=== PATIENT | female | born 1950 | race Caucasian/White ===

== ENCOUNTER 2018-11-16 19:39 | Inpatient (IN) | payer MEDICARE, MEDICAID ==
[~2018-11-16] VITALS: Ht 165.1 cm; Wt 76.2 kg
[2018-11-16 21:00] LABS: BASOPHILS # (AUTO) 0.07 x10^3/uL (0-0.1); BASOPHILS % (AUTO) 1 % (0-1); EOSINOPHILS # (AUTO) 0.12 x10^3/uL (0-0.4); EOSINOPHILS % (AUTO) 2 % (1-7); LYMPHOCYTES # (AUTO) 2.29 x10^3/uL (1-3.4); LYMPHOCYTES % (AUTO) 29 % (22-44); MD NO; MEAN CORPUSCULAR HEMOGLOBIN 24.6 pg (27.0-34.8); MEAN CORPUSCULAR HGB CONC 31.3 g/dL (32.4-35.8); MEAN CORPUSCULAR VOLUME 78.6 fL (80-100); MEAN PLATELET VOLUME 7.1 fL (7.4-10.4); MONOCYTES # (AUTO) 0.75 x10^3/uL (0.2-0.8); MONOCYTES % (AUTO) 10 % (2-9); NEUTROPHILS # (AUTO) 4.62 x10^3/uL (1.8-6.8); NEUTROPHILS % (AUTO) 59 % (42-75); PLATELET COUNT 317 x10^3/uL (130-400); RED BLOOD COUNT 4.65 x10^6/uL (3.82-5.3); RED CELL DISTRIBUTION WIDTH 19.6 % (9.6-15.2)
[2018-11-16 21:11] LABS: ALANINE AMINOTRANSFERASE 19 U/L (12-78); ALBUMIN 3.4 g/dL (3.4-5.0); ANION GAP 8 mmol/L (5-15); CALCIUM 8.2 mg/dL (8.5-10.1); CHLORIDE 101 mmol/L (98-107)
[2018-11-16 21:16] LABS: ALKALINE PHOSPHATASE 149 U/L (45-117); BILIRUBIN,TOTAL 0.2 mg/dL (0.2-1.0); CREATININE 0.84 mg/dL (0.55-1.02); TOTAL PROTEIN 7.1 g/dL (6.4-8.2); TROPONIN I < 0.015 ng/mL (0.000-0.045)
--- NOTE | 2018-11-16 21:29 | NUR ---
ASSIST RN: PT AMBULATED TO BR WITHOUT DIFFICULTY.
--- NOTE | 2018-11-16 22:00 | NUR ---
REPORT RC'VD FROM ERIN MOELLER. RV'WD POC WITH PT, SHE VERBALIZES UNDERSTANDING.
--- NOTE | 2018-11-16 22:15 | NUR ---
PT TO CT VIA [facility].
[2018-11-16] MEDS ORDERED: OMNIPAQUE 350 MG/ML, 100ML BOTTLE ONE (22:30)
[2018-11-16] MEDS ORDERED: DULO20CA45 PO (22:39)
[2018-11-16] MEDS ORDERED: OMEP-110 PO (22:39)
[2018-11-16] MEDS ORDERED: OLAN20TA7 PO (22:39)
[2018-11-16] MEDS ORDERED: TIOT18CA INH (22:39)
[2018-11-16] MEDS ORDERED: LAMO100T PO (22:39)
[2018-11-16] MEDS ORDERED: LISI-167 PO (22:44)
[2018-11-16] MEDS ORDERED: METOPROLOL PO (22:44)
[2018-11-16] MEDS ORDERED: TRIA10.8 NAS (22:44)
[2018-11-16] MEDS ORDERED: AMLO10TA8 PO (22:44)
[2018-11-16] MEDS ORDERED: FLUT1BLS INH (22:44)
[2018-11-16] MEDS ORDERED: GABA100C PO (22:44)
--- NOTE | 2018-11-16 22:56 | NUR ---
PT HAS BEEN RESTING QUIETLY IN [facility], AWAKENS EASILY. AMBULATED TO BR WITH STAND BY ASSIST.
[2018-11-16 23:46] VITALS: BP 132/75
[2018-11-17] VITALS (8 sets, daily range): BP systolic 130–170; BP diastolic 70–92
[2018-11-17] MEDS ORDERED: VANCOMYCIN PER PHARMACY MC PRN (01:00)
[2018-11-17] MEDS ORDERED: VANCOMYCIN 1,400 MG in SODIUM CHLORIDE 0.9% 250 ML IV SCH (01:00)
[2018-11-17] MEDS ORDERED: ONDANSETRON ODT 4 MG PO PRN (01:00)
[2018-11-17] MEDS ORDERED: hydrALAzine 20 MG/ML, 1ML IVPush PRN (01:00)
[2018-11-17] MEDS ORDERED: PHARMACOKINETIC CONSULTATION MC ONE (01:00)
[2018-11-17] MEDS ORDERED: PHARMACOKINETIC MONITORING MC PRN (01:00)
[2018-11-17] MEDS: ENOXAPARIN 40 MG/0.4 ML SQ SCH (01:19)
[2018-11-17] MEDS ORDERED: ALBUTEROL/IPRATROPIUM 2.5MG/0.5MG, 3 ML ONE (01:39)
[2018-11-17] MEDS ORDERED: ALBUTEROL/IPRATROPIUM 2.5MG/0.5MG, 3 ML NPPB PRN (02:00)
[2018-11-17] MEDS: ALBUTEROL/IPRATROPIUM 2.5MG/0.5MG, 3 ML NPPB SCH ×3 (07:00→20:09)
[2018-11-17] MEDS: ACETAMINOPHEN 325 MG TABLET PO PRN ×2 (09:54→15:32)
[2018-11-17] MEDS ORDERED: METO-99 PO (10:28)
[2018-11-17] MEDS ORDERED: ALBU18HF INH (10:28)
[2018-11-17] MEDS ORDERED: NYST1POW31 TP (10:28)
[2018-11-17] MEDS ORDERED: HYDR50CA2 PO (10:28)
[2018-11-17] MEDS: DULOXETINE 20 MG CAPSULE.DR PO SCH ×2 (10:59→20:01)
[2018-11-17] MEDS: GUAIFENESIN 200 MG TABLET PO SCH ×3 (10:59→20:00)
[2018-11-17] MEDS: LISINOPRIL 40 MG TABLET PO SCH (10:59)
[2018-11-17] MEDS: METOPROLOL TARTRATE 100 MG TABLET PO SCH ×2 (11:00→20:00)
[2018-11-17] MEDS: CEFTRIAXONE PMX 1GM/50ML 50 ML IV SCH ×2 (11:01→11:22)
[2018-11-17 12:46] LABS: HCT (SEDRATE) 36.6 % (34.6-47.8)
[2018-11-17 12:56] LABS: C-REACTIVE PROTEIN, QUANT 0.22 mg/dL (0.02-0.49)
[2018-11-17] MEDS: DOXYCYCLINE 100 MG in DEXTROSE 5% 250 ML IV SCH ×2 (12:56→23:00)
[2018-11-17] MEDS: LIDODERM 5% PATCH TD PRN (12:56)
[2018-11-17] MEDS ORDERED: METHOCARBAMOL 500 MG TABLET PO PRN (13:00)
[2018-11-17 13:05] LABS: THYROID STIMULATING HORMONE 1.11 mIU/L (0.358-3.740)
[2018-11-17] MEDS: BUDESONIDE 0.5 MG/2 ML INHA NPPB SCH ×2 (13:53→20:09)
[2018-11-17] MEDS ORDERED: HYDROXYZINE PAMOATE 50MG CAP PO PRN (17:30)
[2018-11-17] MEDS: GABAPENTIN 100 MG CAPSULE PO SCH (20:00)
[2018-11-17] MEDS: LAMOTRIGINE 100 MG TABLET PO SCH (20:01)
[2018-11-17] MEDS: AMLODIPINE 10 MG TAB PO SCH (20:02)
[2018-11-18] MEDS: ENOXAPARIN 40 MG/0.4 ML SQ SCH (00:35)
[2018-11-18 00:53] VITALS: BP 138/74
[2018-11-18] MEDS: ALBUTEROL/IPRATROPIUM 2.5MG/0.5MG, 3 ML NPPB SCH ×4 (03:20→20:05)
[2018-11-18] MEDS: GUAIFENESIN 200 MG TABLET PO SCH ×4 (05:36→20:31)
[2018-11-18] MEDS: ACETAMINOPHEN 325 MG TABLET PO PRN ×3 (05:37→17:33)
[2018-11-18 06:22] LABS: ANION GAP 7 mmol/L (5-15); CALCIUM 8.7 mg/dL (8.5-10.1); CHLORIDE 104 mmol/L (98-107)
[2018-11-18 06:24] LABS: CREATININE 0.69 mg/dL (0.55-1.02)
[2018-11-18 06:36] LABS: BASOPHILS # (AUTO) 0.02 x10^3/uL (0-0.1); BASOPHILS % (AUTO) 0 % (0-1); EOSINOPHILS # (AUTO) 0.11 x10^3/uL (0-0.4); EOSINOPHILS % (AUTO) 2 % (1-7); LYMPHOCYTES # (AUTO) 1.76 x10^3/uL (1-3.4); LYMPHOCYTES % (AUTO) 28 % (22-44); MD NO; MEAN CORPUSCULAR HEMOGLOBIN 24.6 pg (27.0-34.8); MEAN CORPUSCULAR HGB CONC 31.7 g/dL (32.4-35.8); MEAN CORPUSCULAR VOLUME 77.7 fL (80-100); MEAN PLATELET VOLUME 7.4 fL (7.4-10.4); MONOCYTES # (AUTO) 0.52 x10^3/uL (0.2-0.8); MONOCYTES % (AUTO) 8 % (2-9); NEUTROPHILS # (AUTO) 3.79 x10^3/uL (1.8-6.8); NEUTROPHILS % (AUTO) 61 % (42-75); PLATELET COUNT 284 x10^3/uL (130-400); RED BLOOD COUNT 4.64 x10^6/uL (3.82-5.3); RED CELL DISTRIBUTION WIDTH 20.1 % (9.6-15.2)
[2018-11-18 07:28] VITALS: BP 166/75
[2018-11-18] MEDS: BUDESONIDE 0.5 MG/2 ML INHA NPPB SCH ×2 (09:00→20:05)
[2018-11-18] MEDS ORDERED: LISINOPRIL 20 MG TABLET ONE (09:44)
[2018-11-18 10:44] VITALS: BP 182/79
[2018-11-18] MEDS: DULOXETINE 20 MG CAPSULE.DR PO SCH ×2 (11:00→20:31)
[2018-11-18] MEDS: METOPROLOL TARTRATE 100 MG TABLET PO SCH ×2 (11:00→20:32)
[2018-11-18] MEDS: AMLODIPINE 10 MG TAB PO SCH ×2 (11:00→20:29)
[2018-11-18] MEDS: OMEPRAZOLE 20 MG CAPSULE.DR PO SCH (11:00)
[2018-11-18] MEDS: LAMOTRIGINE 100 MG TABLET PO SCH ×2 (11:00→20:31)
[2018-11-18] MEDS: CEFTRIAXONE PMX 1GM/50ML 50 ML IV SCH (11:00)
[2018-11-18] MEDS: LISINOPRIL 40 MG TABLET PO SCH (11:00)
[2018-11-18] MEDS: FLUTICASONE NASAL SPRAY 16GM NAS SCH (11:00)
[2018-11-18] MEDS: GABAPENTIN 100 MG CAPSULE PO SCH ×3 (11:00→20:29)
[2018-11-18] MEDS: DOXYCYCLINE 100 MG in DEXTROSE 5% 250 ML IV SCH ×2 (12:27→23:02)
[2018-11-18] MEDS: FERROUS SULFATE 325 MG TABLET PO SCH ×2 (12:36→17:33)
[2018-11-18 12:40] VITALS: BP 169/85
[2018-11-18 13:45] VITALS: BP 151/87
[2018-11-18] MEDS: CHLORTHALIDONE 25 MG TABLET PO SCH (14:41)
[2018-11-18] MEDS: METHOCARBAMOL 500 MG TABLET PO SCH ×2 (14:41→20:29)
[2018-11-18] MEDS ORDERED: OMNIPAQUE 350 MG/ML, 100ML BOTTLE ONE (16:30)
[2018-11-18 19:26] VITALS: BP 138/62
[2018-11-19 01:14] VITALS: BP 144/59
[2018-11-19] MEDS: ENOXAPARIN 40 MG/0.4 ML SQ SCH (01:57)
[2018-11-19] MEDS: METHOCARBAMOL 500 MG TABLET PO SCH ×3 (02:01→17:37)
[2018-11-19] MEDS: LIDODERM 5% PATCH TD PRN (02:38)
[2018-11-19] MEDS: ACETAMINOPHEN 325 MG TABLET PO PRN ×2 (02:49→10:41)
[2018-11-19] MEDS: ALBUTEROL/IPRATROPIUM 2.5MG/0.5MG, 3 ML NPPB SCH ×3 (02:55→14:40)
[2018-11-19] MEDS: DOCUSATE 100 MG CAPSULE PO PRN ×2 (03:24→10:41)
[2018-11-19] MEDS: GUAIFENESIN 200 MG TABLET PO SCH ×3 (05:19→17:37)
[2018-11-19 05:27] LABS: BASOPHILS % (AUTO) 0 % (0-1); EOSINOPHILS # (AUTO) 0.13 x10^3/uL (0-0.4); EOSINOPHILS % (AUTO) 2 % (1-7); LYMPHOCYTES # (AUTO) 1.95 x10^3/uL (1-3.4); LYMPHOCYTES % (AUTO) 29 % (22-44); MD NO; MEAN CORPUSCULAR HEMOGLOBIN 25.1 pg (27.0-34.8); MEAN CORPUSCULAR HGB CONC 31.6 g/dL (32.4-35.8); MEAN CORPUSCULAR VOLUME 79.3 fL (80-100); MONOCYTES # (AUTO) 0.43 x10^3/uL (0.2-0.8); MONOCYTES % (AUTO) 6 % (2-9); NEUTROPHILS # (AUTO) 4.25 x10^3/uL (1.8-6.8); NEUTROPHILS % (AUTO) 63 % (42-75); PLATELET COUNT 298 x10^3/uL (130-400); RED BLOOD COUNT 5.08 x10^6/uL (3.82-5.3); RED CELL DISTRIBUTION WIDTH 20.1 % (9.6-15.2)
[2018-11-19 05:40] LABS: CHLORIDE 100 mmol/L (98-107)
[2018-11-19 05:47] LABS: CALCIUM 8.7 mg/dL (8.5-10.1); CHOLESTEROL, TOTAL 165 mg/dL (140-239); CREATININE 0.81 mg/dL (0.55-1.02); HDL CHOL % 33 % (28-40); HDL CHOLESTEROL (DIRECT) 55 mg/dL (40-60); LDL CHOLESTEROL,CALCULATED 96 mg/dL (54-169); LDL/HDL RATIO 1.7 (0.5-3.0); TRIGLYCERIDES 69 mg/dL (50-200); VLDL CHOLESTEROL 14 mg/dL (0-25)
[2018-11-19 06:21] LABS: ANION GAP 10 mmol/L (5-15)
[2018-11-19 07:37] VITALS: BP 141/79
[2018-11-19] MEDS: FLUTICASONE NASAL SPRAY 16GM NAS SCH (08:48)
[2018-11-19] MEDS: LAMOTRIGINE 100 MG TABLET PO SCH (08:49)
[2018-11-19] MEDS: FERROUS SULFATE 325 MG TABLET PO SCH ×3 (08:49→17:38)
[2018-11-19] MEDS: OMEPRAZOLE 20 MG CAPSULE.DR PO SCH (08:49)
[2018-11-19] MEDS: AMLODIPINE 10 MG TAB PO SCH (08:49)
[2018-11-19] MEDS: GABAPENTIN 100 MG CAPSULE PO SCH ×2 (08:49→17:37)
[2018-11-19] MEDS: DULOXETINE 20 MG CAPSULE.DR PO SCH (08:50)
[2018-11-19] MEDS: CHLORTHALIDONE 25 MG TABLET PO SCH (08:50)
[2018-11-19] MEDS: LISINOPRIL 40 MG TABLET PO SCH (08:50)
[2018-11-19] MEDS: METOPROLOL TARTRATE 100 MG TABLET PO SCH (08:50)
[2018-11-19] MEDS: BUDESONIDE 0.5 MG/2 ML INHA NPPB SCH (09:00)
[2018-11-19] MEDS: CEFTRIAXONE PMX 1GM/50ML 50 ML IV SCH (10:33)
[2018-11-19] MEDS ORDERED: HYDROXYZINE PAMOATE 25MG CAP ONE (10:38)
[2018-11-19] MEDS: DOXYCYCLINE 100 MG in DEXTROSE 5% 250 ML IV SCH (11:10)
[2018-11-19 14:03] VITALS: BP 164/90
[2018-11-19] MEDS ORDERED: POTASSIUM CHLORIDE 20 MEQ TAB.ER.PRT PO ONE (14:30)
[2018-11-19] MEDS ORDERED: CHLORTHALIDONE 25 MG TABLET PO SCH (15:00)
[2018-11-19] MEDS ORDERED: GUAI200T3 PO (16:28)
[2018-11-19] MEDS ORDERED: CEFD300C37 PO (16:28)
[2018-11-19] MEDS ORDERED: DOXY100T PO (16:28)
[2018-11-19] MEDS ORDERED: DOCU-131 PO (16:28)
[2018-11-19] MEDS ORDERED: ATOR20TA37 PO (16:28)
[2018-11-19] MEDS ORDERED: FERR-51 PO (16:28)
[2018-11-19] MEDS ORDERED: CHLO25TA PO (16:28)
[2018-11-19] MEDS ORDERED: ASPI81TA45 PO (16:28)
[2018-11-19] MEDS ORDERED: DOXYCYCLINE 100MG TABLET PO SCH (21:00)
[2018-11-19] MEDS ORDERED: ATORVASTATIN 20 MG TABLET PO SCH (21:00)
[2018-11-19] MEDS ORDERED: CEFDINIR 300 MG CAPSULE PO SCH (21:00)
[2018-11-20] MEDS ORDERED: ASPIRIN 81 MG TABLET EC PO SCH (06:00)
== END 2018-11-19 18:57 | disposition home health service (06) | DRG 74 ==
LOC: ED 22:14 → EDIP 23:00 → 5SO 23:52
PROVIDERS: ADMIT Internal Medicine; ATTEND Internal Medicine
DX: G90.8 Other disorders of autonomic nervous system (principal); L03.115 Cellulitis of right lower limb; J96.10 Chronic respiratory failure, unspecified whether with hypoxia or hypercapnia; F33.9 Major depressive disorder, recurrent, unspecified; J44.9 Chronic obstructive pulmonary disease, unspecified; K44.9 Diaphragmatic hernia without obstruction or gangrene; I10 Essential (primary) hypertension; Z99.81 Dependence on supplemental oxygen; Z60.2 Problems related to living alone; S50.312A Abrasion of left elbow, initial encounter; B19.20 Unspecified viral hepatitis C without hepatic coma; F20.9 Schizophrenia, unspecified; F41.9 Anxiety disorder, unspecified; G47.33 Obstructive sleep apnea (adult) (pediatric); Z66 Do not resuscitate; D50.9 Iron deficiency anemia, unspecified; E66.3 Overweight; G89.29 Other chronic pain; K59.09 Other constipation; Z83.3 Family history of diabetes mellitus; Z82.5 Family history of asthma and other chronic lower respiratory diseases; Z87.891 Personal history of nicotine dependence; Z98.1 Arthrodesis status; Z82.49 Family history of ischemic heart disease and other diseases of the circulatory system; Z88.8 Allergy status to other drugs, medicaments and biological substances; Z09 Encounter for follow-up examination after completed treatment for conditions other than malignant neoplasm; Z88.7 Allergy status to serum and vaccine; Z91.19 Patient's noncompliance with other medical treatment and regimen; Z68.28 Body mass index [BMI] 28.0-28.9, adult; Z79.899 Other long term (current) drug therapy; Z87.01 Personal history of pneumonia (recurrent)
CPT/HCPCS: 36415; 70450; 70498; 71045; 71275; 72050; 74018; 80048; 80053; 80061; 82728; 83540; 83550; 83735; 83880; 84145; 84443; 84466; 84484; 85025; 85651; 86140; 87040; 87205; 93005; 93306; 93880; 94640; 99285; G0378; J0696; J1650; J3370; J7060; J7620; J7626; Q9967; J0360; J7050